=== PATIENT | male | born 1970 | race Caucasian/White ===

== ENCOUNTER 2020-09-13 09:20 | Emergency (ER) | payer OTHER ==
[~2020-09-13] VITALS: Ht 182.9 cm; Wt 107.7 kg
[2020-09-13 09:20] VITALS: BP 149/62
[2020-09-13] MEDS ORDERED: ONDANSETRON ODT 4 MG TAB.RAPDIS PO ONE (09:45)
--- NOTE | 2020-09-13 09:53 | PHYS DOC ---
Past History Past Medical History: No Pertinent History Adult General Chief Complaint Chief Complaint: FLU SYMPTOM HPI HPI Patient is a 50-year-old male presenting with Covid-like symptoms. States first day of symptoms was 4 days ago. Lives at home with who is local fausto, was recently seen at our facility after being on quarantine from close Covid contact and is currently a PUI for Covid with findings consistent for atypical pneumonia. Nonetheless, patient has been providing supportive care to his at home and has been in close contact with her. He fears he might have contracted "what ever she has ". He is otherwise healthy, does not take any medications on a daily basis, denies any fever syncope or chest pain. Admits having fatigue, weakness, rhinorrhea, dry nonproductive cough, postnasal drip, nausea, generalized abdominal pain and diarrhea. He has been tolerating p.o. intake at home but reports intermittent nausea when trying to eat certain foods Review of Systems Review of Systems Fourteen body systems of review of systems have been reviewed. See HPI for pertinent positives and negative responses, other craft all other systems are negative, non-pertinent or non-contributory Current Medications Current Medications Current Medications Medications (Trade) Dose Ordered Sig/Breonna Start Time Stop Time Status Last Admin Dose Admin Ondansetron HCl (Zofran Odt) 4 mg 1X ONCE 09/13/20 09:45 09/13/20 09:46 UNV Allergies Allergies Allergies Coded Allergies Type Severity Reaction Last Updated Verified No Known Drug Allergies 09/13/20 No Physical Exam Physical Exam Constitutional: Well developed, well nourished, no acute distress, non-toxic appearance. HENT: Normocephalic, atraumatic, bilateral external ears normal, oropharynx moist, no oral exudates, nose normal. Eyes: PERRLA, EOMI, conjunctiva normal, no discharge. Neck: Normal range of motion, no tenderness, supple, no stridor. Cardiovascular: Heart rate regular, sinus rhythm, no murmurs rubs or gallops Lungs & Thorax: Bilateral breath sounds clear to auscultation Abdomen: Bowel sounds normal, soft, no tenderness, no masses, no pulsatile masses. Nonsurgical abdomen, no peritoneal signs Skin: Warm, dry, no erythema, no rash. Back: No tenderness, no CVA tenderness. Extremities: No tenderness, no cyanosis, no clubbing, ROM intact, no edema. Neurologic: Alert and oriented X 3, grossly normal motor & sensory function, no focal deficits noted. Psychologic: Affect normal, judgement normal, mood normal. Current Patient Data Vital Signs Vital Signs Date Time Temp Pulse Resp B/P (MAP) Pulse Ox O2 Delivery O2 Flow Rate FiO2 09/13/20 09:20 98.0 77 16 149/62 (91) 96 Room Air EKG EKG [] Radiology/Procedures Radiology/Procedures PROCEDURE: CHEST AP ONLY Exam performed: One view chest. Indication: Reason: COUGH, COVID EXPOSURE / Spl. Instructions: / History: Date of Service: 09/13/2020 9:43 AM Comparison: None available. Single AP upright portable view chest findings: Cardiomediastinal silhouette is within limits of normal. No acute infiltrates, effusion or pneumothorax is detected. The bony structures are normal. Impression: No acute cardiopulmonary process is detected. Electronically signed by: Laya Gimenez MD (09/13/2020 9:59 AM) [id number] Heart Score C/O Chest Pain: No Risk Factors: Risk Factors: DM, Current or recent (<one month) smoker, HTN, HLP, family history of CAD, obesity. Risk Scores: Risk Factors: DM, Current or recent (<one month) smoker, HTN, HLP, family history of CAD, obesity. Course & Med Decision Making Course & Med Decision Making Dynamically stable patient with history concerning for suspect COVID-19 infection. Physical exam nonconcerning. Chest x-ray noninfectious in nature with no abnormalities noted, flu negative 4 mg Zofran ODT administered and subsequent p.o. challenge tolerated while in ER Patient tested for Covid with results pending, he will return home as a PUI with quarantine restrictions and was educated extensively on continued supportive care practices. I will be providing him Rx Zofran for as needed nausea Strict return precautions were discussed with good understanding by patient, all questions and concerns addressed prior to ER departure in stable condition Dragon Disclaimer Dragon Disclaimer This electronic medical record was generated, in whole or in part, using a voice recognition dictation system. Departure Departure: Impression: Primary Impression: Person under investigation for COVID-19 Additional Impression: Nausea, vomiting and diarrhea Disposition: 01 DC HOME SELF CARE/HOMELESS Condition: STABLE Referrals: [facility] (PCP) Patient Instructions: Nausea and Vomiting Additional Instructions: You were seen for a constellation of nonspecific symptoms that are concerning for possible infection with COVID-19. Your physical exam was reassuring. Your chest x-ray was normal. We tested you for COVID-19 but this test does not come back for 1 to 2 days. In the meantime you need to quarantine yourself at home away from all other individuals, especially those who are elderly or have any other chronic health issues or an immunocompromised status. You should return to the ED if you develop worsening cough, shortness of breath, chest pain, or any other new or concerning symptoms. Alternate Tylenol and ibuprofen as needed for body aches and pain. If your test does come back positive you need to quarantine yourself for 10 days until symptom-free. You should make sure to drink plenty of fluids and get plenty of rest. Problem Qualifiers YUNIOR HASSAN DO Sep 13, 2020 09:52
--- NOTE | 2020-09-13 10:02 | RAD ---
Exam performed: One view chest. Indication: Reason: COUGH, COVID EXPOSURE / Spl. Instructions: / History: Date of Service: 09/13/2020 9:43 AM Comparison: None available. Single AP upright portable view chest findings: Cardiomediastinal silhouette is within limits of normal. No acute infiltrates, effusion or pneumotho rax is detected. The bony structures are normal. Impression: No acute cardiopulmonary process is detected. Electronically signed by: Laya Gimenez MD (09/13/2020 9:59 AM) [id number]
[2020-09-13 10:47] LABS: INFLUENZA A PATIENT NEGATIVE (NEGATIVE); INFLUENZA B PATIENT NEGATIVE (NEGATIVE)
[2020-09-13] MEDS ORDERED: ONDA4TAB7 PO (11:38)
--- NOTE | 2020-09-15 09:30 | NUR ---
IP note: Positive COVID results called to pt at home number. Pt states his was treated 09/11, they have been isolating/quarantining at home. Pt works from home, symptoms are fatigue, nausea, feeling of being unable to get deep sleep. Instructed to maintain quarantine/isolation, pt has no questions at this time.
== END 2020-09-13 11:33 | disposition home or self-care (01) ==
LOC: ER 09:20
DX: U07.1 COVID-19 (principal); R10.84 Generalized abdominal pain; R11.2 Nausea with vomiting, unspecified; R19.7 Diarrhea, unspecified
CPT/HCPCS: 71045; 87804; 99284; C9803; Q0162; U0003